=== PATIENT | female | born 1995 | race African-American/Black ===

== ENCOUNTER 2023-03-07 00:38 | Observation (INO) | payer MEDICAID ==
[~2023-03-07] VITALS: Ht 185.4 cm; Wt 108.4 kg
[2023-03-07 00:40] VITALS: BP 122/78; PULSE 105; RESP 20
[2023-03-07 01:03] LABS: APPEARANCE,URINE CLEAR (CLEAR); BILIRUBIN,URINE NEGATIVE (NEGATIVE); COLOR,URINE COLORLESS (YELLOW); GLUCOSE, URINE (UA) NEGATIVE (NEGATIVE); KETONES,URINE NEGATIVE (NEGATIVE); LEUKOCYTE ESTERASE ,URINE NEGATIVE Leu/uL (NEGATIVE); NITRATE,URINE NEGATIVE (NEGATIVE); OCCULT BLOOD,URINE NEGATIVE (NEGATIVE); PROTEIN,URINE NEGATIVE (NEGATIVE); UROBILINOGEN,URINE 0.2 mg/dL (0.2-1.0)
[2023-03-07 01:04] LABS: ADD UA MICROSCOPIC NO
[2023-03-07 02:05] LABS: HEMATOCRIT 28.5 % (36-48); MEAN CORPUSCULAR HEMOGLOBIN 25.9 pg (27.0-33.0); MEAN CORPUSCULAR HGB CONC 31.2 g/dL (32.0-36.0); MEAN CORPUSCULAR VOLUME 82.8 fL (79-99); NUCLEATED RED BLOOD CELLS 0.2 % (0.0-0.19); RED BLOOD CELL COUNT(AUTO) 3.44 MIL/uL (4.00-5.50); RED CELL DISTRIBUTION WIDTH 14.7 % (11.0-15.5); WHITE BLOOD COUNT (AUTO) 11.2 K/uL (4.8-10.8)
[2023-03-07 02:41] LABS: HIV 1&2 ANTIBODY Non-Reactive (Negative)
[2023-03-07 02:42] LABS: HIV-1 p24 Antigen Non-Reactive (Negative)
[2023-03-07] MEDS: LACTATED RINGERS 1000ML 1,000 ML IV PRN ×2 (02:47→08:59)
[2023-03-07] MEDS ORDERED: MEPERIDINE-PF 50 MG/ML SYG IM PRN (04:30)
[2023-03-07] MEDS ORDERED: PROMETHAZINE HCL 25 MG/ML 1ML AMPULE IM PRN (04:30)
[2023-03-07] MEDS ORDERED: MEPERIDINE-PF 50 MG/ML SYG IVP PRN (05:00)
[2023-03-07 13:05] LABS: RAPID PLASMA REAGIN NONREACTIVE (NONREACTIVE)
== END 2023-03-07 12:56 | disposition home or self-care (01) ==
LOC: EDH 00:38 → LDH 00:48
PROVIDERS: ADMIT Obstetrics & Gynecology; ATTEND Obstetrics & Gynecology
DX: O62.9 Abnormality of forces of labor, unspecified (principal); Z3A.36 36 weeks gestation of pregnancy; Z79.899 Other long term (current) drug therapy
CPT/HCPCS: 96372; 96361 ×3; 96360; 85027; 86592; 86850; 86900; 86901; 87340; 86701; 87390; 81003; 36415; 76805; G0378 ×12; G0379; J7120 ×2; J2550; J2175

== ENCOUNTER 2023-03-14 08:08 | Observation (INO) | payer MEDICAID ==
[~2023-03-14] VITALS: Ht 180.3 cm; Wt 107.0 kg
[2023-03-14 08:09] VITALS: BP 113/66; PULSE 110; RESP 20
[2023-03-14 09:21] LABS: BILIRUBIN,URINE NEGATIVE (NEGATIVE); COLOR,URINE YELLOW (YELLOW); GLUCOSE, URINE (UA) NEGATIVE (NEGATIVE); KETONES,URINE NEGATIVE (NEGATIVE); LEUKOCYTE ESTERASE ,URINE 25 Leu/uL (NEGATIVE); NITRATE,URINE NEGATIVE (NEGATIVE); OCCULT BLOOD,URINE NEGATIVE (NEGATIVE); PROTEIN,URINE 20 mg/dL (NEGATIVE); UROBILINOGEN,URINE 0.2 mg/dL (0.2-1.0)
[2023-03-14 09:27] LABS: ADD UA MICROSCOPIC YES; APPEARANCE,URINE HAZY (CLEAR)
[2023-03-14 09:28] LABS: BACTERIA,URINE RARE /HPF (None Seen); MUCUS,URINE RARE LPF (None Seen); RBC,URINE 0-1 /HPF (0-1); SQUAMOUS EPITHELIAL CELL,UR MANY /HPF (0-2)
[2023-03-14 09:32] LABS: AMPHET/METH SCREEN,URINE NEGATIVE (NEGATIVE); BARBITURATE SCREEN, URINE NEGATIVE (NEGATIVE); BENZODIAZEPINES SCREEN,URINE NEGATIVE (NEGATIVE); CANNABINOID SCREEN,URINE NEGATIVE (NEGATIVE); COCAINE SCREEN,URINE NEGATIVE (NEGATIVE); OPIATE SCREEN,URINE NEGATIVE (NEGATIVE); PHENCYCLIDINE SCREEN,URINE NEGATIVE (NEGATIVE)
[2023-03-14] MEDS ORDERED: OXYTOCIN-LR 30 UNITS/500ML 500 ML IV SCH (11:00)
[2023-03-14] MEDS ORDERED: AMPICILLIN 2GM+NS 100ML 100 ML IV SCH (11:00)
[2023-03-14 11:06] LABS: HEMATOCRIT 29.4 % (36-48); MEAN CORPUSCULAR HEMOGLOBIN 25.8 pg (27.0-33.0); MEAN CORPUSCULAR VOLUME 83.3 fL (79-99); NUCLEATED RED BLOOD CELLS 0.3 % (0.0-0.19); PLATELET COUNT (AUTO) 380 K/uL (130-400); RED BLOOD CELL COUNT(AUTO) 3.53 MIL/uL (4.00-5.50); RED CELL DISTRIBUTION WIDTH 15.4 % (11.0-15.5); WHITE BLOOD COUNT (AUTO) 10.2 K/uL (4.8-10.8)
[2023-03-14] MEDS: LACTATED RINGERS 1000ML 1,000 ML IV SCH ×2 (13:56→17:15)
[2023-03-14] MEDS: AMPICILLIN 1GM+NS 50ML IV SCH ×2 (17:15→20:24)
[2023-03-14] MEDS ORDERED: DIPHENHYDRAMINE HCL 25 MG CAPSULE PO ONE (20:00)
[2023-03-14] MEDS ORDERED: CYCLOBENZAPRINE HCL 10 MG TABLET PO ONE (20:00)
[2023-03-14] MEDS ORDERED: MEPERIDINE-PF 50 MG/ML SYG IVP PRN (20:00)
[2023-03-14] MEDS ORDERED: ACETAMINOPHEN 500 MG TABLET PO PRN (20:00)
[2023-03-14] MEDS ORDERED: PROMETHAZINE HCL 25 MG/ML 1ML AMPULE IM PRN (20:00)
== END 2023-03-14 21:45 | disposition home or self-care (01) ==
LOC: EDH 08:08 → LDH 08:09
PROVIDERS: ADMIT Obstetrics & Gynecology; ATTEND Obstetrics & Gynecology
DX: O75.9 Complication of labor and delivery, unspecified (principal); O24.419 Gestational diabetes mellitus in pregnancy, unspecified control; O26.893 Other specified pregnancy related conditions, third trimester; R10.30 Lower abdominal pain, unspecified; Z3A.38 38 weeks gestation of pregnancy; Z79.899 Other long term (current) drug therapy
CPT/HCPCS: 96365; 96366; 80305; 85027; 86850; 86900; 86901; 81001; 36415; 76819; G0378 ×13; J7120; Q0163; J0290 ×3; 96360

== ENCOUNTER 2023-03-21 08:43 | Inpatient (IN) | payer MEDICAID ==
[~2023-03-21] VITALS: Ht 182.9 cm; Wt 108.9 kg
[2023-03-21 09:21] LABS: APPEARANCE,URINE CLEAR (CLEAR); BILIRUBIN,URINE NEGATIVE (NEGATIVE); COLOR,URINE LIGHT-YELLOW (YELLOW); GLUCOSE, URINE (UA) NEGATIVE (NEGATIVE); KETONES,URINE NEGATIVE (NEGATIVE); LEUKOCYTE ESTERASE ,URINE 75 Leu/uL (NEGATIVE); NITRATE,URINE NEGATIVE (NEGATIVE); OCCULT BLOOD,URINE NEGATIVE (NEGATIVE); PROTEIN,URINE NEGATIVE (NEGATIVE); UROBILINOGEN,URINE 0.2 mg/dL (0.2-1.0)
[2023-03-21 09:22] LABS: ADD UA MICROSCOPIC YES
[2023-03-21 09:23] LABS: BACTERIA,URINE RARE /HPF (None Seen); MUCUS,URINE RARE LPF (None Seen); RBC,URINE 0-1 /HPF (0-1); SQUAMOUS EPITHELIAL CELL,UR MANY /HPF (0-2)
[2023-03-21] MEDS ORDERED: MEPERIDINE-PF 50 MG/ML SYG IVP PRN (10:00)
[2023-03-21] MEDS ORDERED: DINOPROSTONE 10 MG VAGINAL SUPP VG ONE (10:00)
[2023-03-21] MEDS ORDERED: AMPICILLIN 2GM+NS 100ML 100 ML IV SCH (10:00)
[2023-03-21] MEDS ORDERED: PROMETHAZINE HCL 25 MG/ML 1ML AMPULE IM PRN (10:00)
[2023-03-21] MEDS ORDERED: OXYTOCIN-LR 30 UNITS/500ML 500 ML IV SCH (10:00)
[2023-03-21 10:11] LABS: HEMATOCRIT 27.3 % (36-48); MEAN CORPUSCULAR HEMOGLOBIN 25.8 pg (27.0-33.0); MEAN CORPUSCULAR HGB CONC 31.1 g/dL (32.0-36.0); NUCLEATED RED BLOOD CELLS 0.3 % (0.0-0.19); RED BLOOD CELL COUNT(AUTO) 3.29 MIL/uL (4.00-5.50); RED CELL DISTRIBUTION WIDTH 15.6 % (11.0-15.5); WHITE BLOOD COUNT (AUTO) 10.4 K/uL (4.8-10.8)
[2023-03-21] MEDS ORDERED: LACTATED RINGERS 500 ML 500 ML IV PRN (10:30)
[2023-03-21] MEDS ORDERED: ROPIVACAINE 0.2% 100ML VIAL 100 ML EP SCH (10:30)
[2023-03-21] MEDS ORDERED: EPHEDRINE SULFATE 50 MG/ML AMPULE IVP PRN (10:30)
[2023-03-21] MEDS ORDERED: ROPIVACAINE 0.2% 2MG/ML 100ML VIAL EP SCH (10:30)
[2023-03-21] MEDS ORDERED: NALOXONE HCL 0.4 MG/1 ML ML IV PRN (10:30)
[2023-03-21] MEDS: LACTATED RINGERS 1000ML 1,000 ML IV PRN ×2 (10:32→22:41)
[2023-03-21] MEDS: AMPICILLIN 1GM+NS 50ML 50 ML IV SCH ×3 (15:07→22:40)
[2023-03-21 16:07] LABS: HIV 1&2 ANTIBODY Non-Reactive (Negative)
[2023-03-21 16:08] LABS: HIV-1 p24 Antigen Non-Reactive (Negative)
[2023-03-21 16:56] LABS: RAPID PLASMA REAGIN NONREACTIVE (NONREACTIVE)
[2023-03-22] MEDS: AMPICILLIN 1GM+NS 50ML 50 ML IV SCH ×3 (02:34→10:40)
[2023-03-22] MEDS: LACTATED RINGERS 1000ML 1,000 ML IV PRN (06:31)
[2023-03-22] MEDS ORDERED: CEFAZOLIN SODIUM 2 GM VIAL IVPB PRN (11:00)
[2023-03-22] MEDS ORDERED: CALDOLOR 800MG+NS 250ML 250 ML IV PRN (11:00)
[2023-03-22] MEDS ORDERED: MISOPROSTOL 200 MCG TABLET ONE (11:47)
[2023-03-22] MEDS ORDERED: METHYLERGONOVINE MALEATE 0.2 MG/1 ML ML ONE (11:48)
[2023-03-22] MEDS ORDERED: MORPHINE PF 100MG/10ML AMP IV ONE (11:55)
[2023-03-22] MEDS ORDERED: OXYTOCIN 10 USP UNITS/ML ONE (11:55)
[2023-03-22] MEDS ORDERED: ONDANSETRON 4MG INJ ONE ×2 (11:55→11:56)
[2023-03-22] MEDS ORDERED: PHENYLEPHRINE HCL 10 MG/ML 1ML VIAL IV ONE (11:55)
[2023-03-22] MEDS ORDERED: FENTANYL CITRATE PF 50 MCG/1 ML 2ML VIAL ONE (11:55)
[2023-03-22] MEDS ORDERED: DEXAMETHASONE SOD PHOSPHATE 10MG/ML 1ML VIAL ONE (13:05)
[2023-03-22] MEDS ORDERED: 0.9%NACL 10ML VIAL IVP PRN (16:00)
[2023-03-22] MEDS ORDERED: OXYTOCIN-LR 30 UNITS/500ML 500 ML IV PRN (16:00)
[2023-03-22] MEDS ORDERED: PROMETHAZINE HCL 25 MG/ML 1ML AMPULE IM PRN (16:00)
[2023-03-22] MEDS ORDERED: MEPERIDINE-PF 75 MG/ML SYG IM PRN (16:00)
[2023-03-22 17:27] VITALS: BP 112/62; PULSE 68; RESP 18
[2023-03-22 18:00] VITALS: BP 126/72; PULSE 75; RESP 20
[2023-03-22 19:50] VITALS: BP 117/65; PULSE 71; RESP 18
[2023-03-22] MEDS ORDERED: PREN-134 PO (20:11)
[2023-03-22] MEDS: DEXTROSE 5 %-0.45 % NACL 1,000 ML IV PRN (21:25)
[2023-03-23] MEDS: CALDOLOR 800MG+NS 250ML 250 ML IV SCH ×2 (00:56→07:30)
[2023-03-23 01:00] VITALS: BP 115/56; PULSE 89; RESP 18
[2023-03-23] MEDS ORDERED: SIMETHICONE 80 MG TAB.CHEW PO PRN (03:00)
[2023-03-23] MEDS ORDERED: DIPHENHYDRAMINE HCL 25 MG CAPSULE PO PRN (03:00)
[2023-03-23] MEDS ORDERED: HYDROCODONE/ACETAMINOPHEN 5/325 MG TAB PO PRN (03:00)
[2023-03-23] MEDS ORDERED: ACETAMINOPHEN 500 MG TABLET PO PRN (03:00)
[2023-03-23] MEDS ORDERED: ACETAMINOPHEN WITH CODEINE 1 TAB TAB PO PRN (03:00)
[2023-03-23] MEDS ORDERED: LANOLIN 30GM OINTMENT TP PRN (03:00)
[2023-03-23] MEDS ORDERED: BISACODYL 10 MG SUPP.RECT RC PRN (03:00)
[2023-03-23] MEDS ORDERED: IBUPROFEN 600 MG TABLET PO PRN (03:00)
[2023-03-23 03:58] VITALS: BP 107/55; PULSE 85; RESP 18
[2023-03-23] MEDS ORDERED: DIPH,PERTUSS(ACELL),TET VAC/PF 0.5 ML VIAL IM SCH (06:00)
[2023-03-23] MEDS ORDERED: FLU VACC QS2023-24(6MOS UP)/PF 60 MCG/0.5 ML IM ONE (06:00)
[2023-03-23] MEDS ORDERED: MEASLES/MUMPS/RUBELLA VACCINE, LIVE 0.5 ML/VIAL SQ SCH (06:00)
[2023-03-23 07:20] VITALS: BP 117/70; PULSE 89; RESP 18
[2023-03-23] MEDS: DEXTROSE 5 %-0.45 % NACL 1,000 ML IV PRN (07:30)
[2023-03-23 08:24] LABS: HEMATOCRIT 26.9 % (36-48); MEAN CORPUSCULAR HEMOGLOBIN 25.9 pg (27.0-33.0); MEAN CORPUSCULAR HGB CONC 30.9 g/dL (32.0-36.0); MEAN CORPUSCULAR VOLUME 84.1 fL (79-99); NUCLEATED RED BLOOD CELLS 0.1 % (0.0-0.19); PLATELET COUNT (AUTO) 333 K/uL (130-400); RED CELL DISTRIBUTION WIDTH 15.3 % (11.0-15.5); WHITE BLOOD COUNT (AUTO) 14.2 K/uL (4.8-10.8)
[2023-03-23] MEDS ORDERED: DOCUSATE SODIUM 100 MG CAP PO SCH (09:00)
[2023-03-23 12:16] VITALS: BP 123/76; PULSE 75; RESP 18
== END 2023-03-23 14:20 | disposition home or self-care (01) | DRG 540 ==
LOC: EDH 08:43 → LDH 08:44 → OBSVTOIN 08:44 → EDH 08:50 → WSH 03-22 16:08
PROVIDERS: ADMIT Obstetrics & Gynecology; ATTEND Obstetrics & Gynecology
PROC: 3E0P7VZ Introduction of Hormone into Female Reproductive, Via Natural or Artificial Opening (ICD-10-PCS; 2023-03-22)
PROC: 10D00Z1 Extraction of Products of Conception, Low, Open Approach (ICD-10-PCS; principal; 2023-03-22 12:00)
PROC: 3E0234Z Introduction of Serum, Toxoid and Vaccine into Muscle, Percutaneous Approach (ICD-10-PCS; 2023-03-23)
PROC: 3E02340 Introduction of Influenza Vaccine into Muscle, Percutaneous Approach (ICD-10-PCS; 2023-03-23)
DX: O69.1XX0 Labor and delivery complicated by cord around neck, with compression, not applicable or unspecified (principal); O76 Abnormality in fetal heart rate and rhythm complicating labor and delivery; Z3A.39 39 weeks gestation of pregnancy; Z37.0 Single live birth; Z23 Encounter for immunization
CPT/HCPCS: 36415; 59510; 76805; 76819; 81001; 85027; 86592; 86701; 86850; 86900; 86901; 86923; 87088; 87340; 87390; 90715; A4344; G0378; J0290; J1100; J1741; J2210; J2274; J2371; J2405; J2590; J3010; J7120; Q2035; A4248; J0690; Q2038